=== PATIENT | female | born 1995 | race Caucasian/White ===

== ENCOUNTER 2023-01-04 04:48 | Emergency (ER) | payer MEDICAID ==
[~2023-01-04] VITALS: Ht 175.3 cm; Wt 143.0 kg
[2023-01-04] MEDS ORDERED: CLIN1GEL9 EX ×2 (05:23)
[2023-01-04] MEDS ORDERED: ACET-1158 PO ×2 (05:23)
[2023-01-04] MEDS ORDERED: CEPH-510 PO ×2 (05:23)
[2023-01-04 05:35] VITALS: BP 121/67
== END 2023-01-04 06:12 | disposition home or self-care (01) ==
LOC: ER 04:48
DX: L73.2 Hidradenitis suppurativa (principal); Z79.899 Other long term (current) drug therapy

== ENCOUNTER 2023-01-04 10:57 | Inpatient (IN) | payer MEDICAID ==
[~2023-01-04] VITALS: Ht 175.3 cm; Wt 148.3 kg
[~2023-01-04 10:57] MED LIST: ACET-1158 PO; CEPH-510 PO; CLIN1GEL9 EX
[2023-01-04 12:00] LABS: Basophils # (auto) 0.1 10 ^3/uL (0-0.2); Basophils % (auto) 0.5 % (0.0-2.0); Eosinophils # (auto) 0.1 10 ^3/uL (0-0.8); Eosinophils % (auto) 0.5 % (0.0-7.0); Hematocrit 36.5 % (36.0-46.0); Hemoglobin 12.1 g/dL (12.2-16.2); Lymphocytes # (auto) 1.6 10 ^3/uL (0.4-5.4); Lymphocytes % (auto) 13.1 % (10.0-50.0); Mean Corpuscular Hemoglobin 29.4 pg (28.0-32.0); Mean Corpuscular Hgb Conc. 33.2 g/dL (32.0-36.0); Mean Corpuscular Volume 88.5 fL (80.0-100.0); Monocytes # (auto) 0.5 10 ^3/uL (0-1.3); Monocytes % (auto) 4.5 % (0.0-12.0); Neutrophils # (auto) 9.9 10 ^3/uL (1.6-8.6); Neutrophils % (auto) 81.4 % (37.0-80.0); Nucleated Red Blood Cells % 0.1 %; Red Blood Cells 4.12 10^6/uL (4.0-5.20); Red Cell Distribution Width 12.3 % (11.8-14.3); White Blood Cell 12.2 10^3/uL (4.4-10.8)
[2023-01-04 12:40] LABS: Albumin 3.3 g/dL (3.4-5.0); BUN/Creatinine Ratio 11.8; Bilirubin, Total 0.4 mg/dL (0.2-1.0); CRP High Sensitivity 3.96 mg/dL (< 0.3); Calcium 8.7 mg/dL (8.5-10.1); Potassium 3.8 mmol/L (3.5-5.1); Total Protein 7.2 g/dL (6.4-8.2)
[2023-01-04] MEDS ORDERED: VANCOMYCIN 1GM/250ML 250 ML IV ONE (17:45)
[2023-01-04] MEDS ORDERED: ACETAMINOPHEN 325 MG TAB PO PRN (18:00)
[2023-01-04 20:14] LABS: Cholesterol 130 mg/dL (< 200); HDL Cholesterol 31 mg/dL (40-59); LDL Cholesterol 92 mg/dL (< 100); Triglycerides 100 mg/dL (< 150)
[2023-01-04] MEDS: SODIUM CHLORIDE 0.9% 1,000 ML IV SCH (23:50)
[2023-01-05] MEDS: SODIUM CHLORIDE 0.9% 1,000 ML IV SCH (02:30)
[2023-01-05 04:25] VITALS: BP 107/56
[2023-01-05 05:05] VITALS: BP 107/56
[2023-01-05 08:44] LABS: Basophils # (auto) 0 10 ^3/uL (0-0.2); Basophils % (auto) 0.1 % (0.0-2.0); Eosinophils # (auto) 0 10 ^3/uL (0-0.8); Eosinophils % (auto) 0.5 % (0.0-7.0); Hematocrit 33.6 % (36.0-46.0); Hemoglobin 11.3 g/dL (12.2-16.2); Lymphocytes # (auto) 1.5 10 ^3/uL (0.4-5.4); Lymphocytes % (auto) 13.9 % (10.0-50.0); Mean Corpuscular Hemoglobin 29.2 pg (28.0-32.0); Mean Corpuscular Hgb Conc. 33.5 g/dL (32.0-36.0); Mean Corpuscular Volume 87.1 fL (80.0-100.0); Monocytes # (auto) 0.4 10 ^3/uL (0-1.3); Monocytes % (auto) 4.1 % (0.0-12.0); Neutrophils # (auto) 8.5 10 ^3/uL (1.6-8.6); Neutrophils % (auto) 81.4 % (37.0-80.0); Red Blood Cells 3.85 10^6/uL (4.0-5.20); Red Cell Distribution Width 12.5 % (11.8-14.3); White Blood Cell 10.5 10^3/uL (4.4-10.8)
[2023-01-05 09:00] VITALS: BP 112/62
[2023-01-05 09:22] LABS: Albumin 2.9 g/dL (3.4-5.0); BUN/Creatinine Ratio 13.8; Bilirubin, Total 0.3 mg/dL (0.2-1.0); Calcium 8.3 mg/dL (8.5-10.1); Potassium 3.7 mmol/L (3.5-5.1); Total Protein 6.5 g/dL (6.4-8.2)
[2023-01-05] MEDS ORDERED: VANCOMYCIN PER PHARMACY 0 MG IV SCH (11:45)
[2023-01-05 13:00] VITALS: BP 121/83
[2023-01-05] MEDS ORDERED: VANCOMYCIN 1GM/250ML 250 ML IV SCH (13:00)
[2023-01-05] MEDS: CEFEPIME 2 GM in SODIUM CHL 0.9% 50 ML IV SCH ×2 (13:45→20:00)
[2023-01-05] MEDS ORDERED: CEFEPIME 2 GM in SODIUM CHL 0.9% 50 ML IV SCH (14:00)
[2023-01-05 16:44] VITALS: BP 113/67
[2023-01-05] MEDS: VANCOMYCIN 1GM/250ML 250 ML IV SCH ×2 (16:46→23:55)
[2023-01-05] MEDS: HYDROcodone-ACET 5/325MG TAB PO PRN ×2 (16:47→23:01)
[2023-01-05 22:00] VITALS: BP 107/50
[2023-01-06] MEDS: CEFEPIME 2 GM in SODIUM CHL 0.9% 50 ML IV SCH ×2 (03:59→18:55)
[2023-01-06] MEDS: HYDROcodone-ACET 5/325MG TAB PO PRN ×4 (04:15→21:06)
[2023-01-06 05:00] VITALS: BP 107/64
[2023-01-06 06:18] LABS: Basophils # (auto) 0 10 ^3/uL (0-0.2); Basophils % (auto) 0.3 % (0.0-2.0); Eosinophils # (auto) 0.1 10 ^3/uL (0-0.8); Eosinophils % (auto) 1.4 % (0.0-7.0); Hematocrit 33.7 % (36.0-46.0); Hemoglobin 11.4 g/dL (12.2-16.2); Lymphocytes # (auto) 1.5 10 ^3/uL (0.4-5.4); Lymphocytes % (auto) 14.5 % (10.0-50.0); Mean Corpuscular Hemoglobin 29.4 pg (28.0-32.0); Mean Corpuscular Hgb Conc. 33.9 g/dL (32.0-36.0); Mean Corpuscular Volume 86.9 fL (80.0-100.0); Monocytes # (auto) 0.6 10 ^3/uL (0-1.3); Monocytes % (auto) 5.7 % (0.0-12.0); Neutrophils % (auto) 78.1 % (37.0-80.0); Nucleated Red Blood Cells % 0.1 %; Red Blood Cells 3.88 10^6/uL (4.0-5.20); Red Cell Distribution Width 12.5 % (11.8-14.3); White Blood Cell 10.3 10^3/uL (4.4-10.8)
[2023-01-06 06:34] LABS: BUN/Creatinine Ratio 10.4; Calcium 8.9 mg/dL (8.5-10.1); Potassium 3.8 mmol/L (3.5-5.1)
[2023-01-06 09:00] VITALS: BP 114/75
[2023-01-06] MEDS: VANCOMYCIN 1GM/250ML 250 ML IV SCH ×3 (09:01→23:57)
[2023-01-06 13:00] VITALS: BP 107/64
[2023-01-06 16:43] VITALS: BP 136/59
[2023-01-06] MEDS ORDERED: VANCOMYCIN 1GM/250ML 250 ML IV SCH (16:45)
[2023-01-06 22:00] VITALS: BP 127/64
[2023-01-07] MEDS: CEFEPIME 2 GM in SODIUM CHL 0.9% 50 ML IV SCH ×3 (02:00→21:45)
[2023-01-07 05:00] VITALS: BP 101/65
[2023-01-07 09:00] VITALS: BP 118/68
[2023-01-07] MEDS: VANCOMYCIN 1GM/250ML 250 ML IV SCH ×2 (09:15→17:46)
[2023-01-07] MEDS ORDERED: MIDAZOLAM HCL 2MG/2ML 2ml VIAL (1mg/ml) ONE (13:41)
[2023-01-07] MEDS ORDERED: fentaNYL CITRATE 100 MCG/2 ML VL ONE ×2 (13:41→13:46)
[2023-01-07] MEDS ORDERED: PROPOFOL 10 MG/ML 20 ML IV ONE (13:50)
[2023-01-07] MEDS ORDERED: ONDANSETRON HCL 4 MG/2 ML VIAL ONE (13:50)
[2023-01-07] MEDS ORDERED: LIDOCAINE 2% (LOCAL ANESTH.) PF 5ml SDV ONE (13:50)
[2023-01-07] MEDS ORDERED: ceFAZolin 1GM VL ONE (14:02)
[2023-01-07] MEDS ORDERED: NEOSTIGMINE 1 MG/ML INJ (10mg/10ML VIAL) ONE (14:34)
[2023-01-07] MEDS ORDERED: GLYCOPYRROLATE 0.2 MG/ML 1ML VIAL ONE (14:34)
[2023-01-07] MEDS ORDERED: ONDANSETRON HCL 4 MG/2 ML VIAL IV PRN (14:45)
[2023-01-07] MEDS ORDERED: HYDROmorphone HCL 2 MG/ML VL/or syr IV PRN ×2 (14:45)
[2023-01-07 17:00] VITALS: BP 105/50
[2023-01-07] MEDS: HYDROcodone-ACET 5/325MG TAB PO PRN (19:05)
[2023-01-07 20:00] VITALS: BP 110/68
[2023-01-07] MEDS: MORPHINE SULFATE INJ 2 MG/ml SYRG IV PRN (20:59)
[2023-01-07 22:00] VITALS: BP 110/68
[2023-01-08] MEDS: HYDROcodone-ACET 5/325MG TAB PO PRN ×5 (00:01→23:00)
[2023-01-08] MEDS: VANCOMYCIN 1GM/250ML 250 ML IV SCH ×3 (02:01→18:22)
[2023-01-08] MEDS: MORPHINE SULFATE INJ 2 MG/ml SYRG IV PRN (02:18)
[2023-01-08 05:00] VITALS: BP 108/63
[2023-01-08] MEDS: CEFEPIME 2 GM in SODIUM CHL 0.9% 50 ML IV SCH ×3 (06:04→23:01)
[2023-01-08 09:00] VITALS: BP 124/76
[2023-01-08 13:00] VITALS: BP 120/71
[2023-01-08 17:00] VITALS: BP 134/81
[2023-01-08 22:00] VITALS: BP 116/67
[2023-01-09] MEDS: VANCOMYCIN 1GM/250ML 250 ML IV SCH ×3 (02:20→19:12)
[2023-01-09 05:00] VITALS: BP 119/77
[2023-01-09] MEDS: CEFEPIME 2 GM in SODIUM CHL 0.9% 50 ML IV SCH ×3 (05:45→22:01)
[2023-01-09] MEDS: HYDROcodone-ACET 5/325MG TAB PO PRN ×3 (06:08→16:45)
[2023-01-09 09:00] VITALS: BP 110/66
[2023-01-09 13:00] VITALS: BP 117/59
[2023-01-09 17:00] VITALS: BP 105/41
[2023-01-09 22:00] VITALS: BP 112/62
[2023-01-10] MEDS: HYDROcodone-ACET 5/325MG TAB PO PRN ×2 (00:54→09:58)
[2023-01-10] MEDS: VANCOMYCIN 1GM/250ML 250 ML IV SCH ×2 (02:15→09:59)
[2023-01-10 05:00] VITALS: BP 105/56
[2023-01-10] MEDS: CEFEPIME 2 GM in SODIUM CHL 0.9% 50 ML IV SCH ×2 (05:47→13:02)
[2023-01-10 08:40] VITALS: BP 103/60
[2023-01-10] MEDS ORDERED: AUG875T PO (11:28)
== END 2023-01-10 13:20 | disposition home health service (06) | DRG 383 ==
LOC: ER 10:57 → OVERFLOW 18:08 → WEST WING 01-05 04:25
PROVIDERS: ADMIT Registered Nurse; ATTEND Internal Medicine Geriatric Medicine
PROC: 0X953ZZ Drainage of Left Axilla, Percutaneous Approach (ICD-10-PCS; principal; 2023-01-07 13:42)
DX: L02.412 Cutaneous abscess of left axilla (principal); B96.4 Proteus (mirabilis) (morganii) as the cause of diseases classified elsewhere; E66.01 Morbid (severe) obesity due to excess calories; L73.2 Hidradenitis suppurativa; Z68.42 Body mass index [BMI] 45.0-49.9, adult; F17.290 Nicotine dependence, other tobacco product, uncomplicated; M62.838 Other muscle spasm; Z20.822 Contact with and (suspected) exposure to COVID-19; B96.20 Unspecified Escherichia coli [E. coli] as the cause of diseases classified elsewhere
CPT/HCPCS: 36415; 76881; 80048; 80053; 80061; 80202; 82565; 83036; 83605; 84443; 84702; 85025; 86141; 87040; 87070; 87075; 87077; 87186; 87205; 87426; G0378; J0690; J2001; J2250; J2405; J2704